=== PATIENT | female | born 1950 | race Caucasian/White ===

== ENCOUNTER 2017-12-29 19:47 | Inpatient (IN) | payer MEDICARE, OTHER ==
[~2017-12-29] VITALS: Ht 165.1 cm; Wt 83.0 kg
[2017-12-29 19:55] VITALS: BP 185/68
[2017-12-29] MEDS ORDERED: NEURONTIN600 MG PO (20:51)
[2017-12-29] MEDS ORDERED: TRAMADOL 50 MG50 MG PO (20:52)
[2017-12-29] MEDS ORDERED: LISINOPRIL10 MG PO (20:53)
[2017-12-29] MEDS ORDERED: XANAX 0.25 MG0.25 MG PO (20:54)
[2017-12-29] MEDS ORDERED: NIFEDIPINE ER60 M1 PO (20:54)
[2017-12-29] MEDS ORDERED: PRAVACHOL20 MG PO (20:55)
[2017-12-29] MEDS ORDERED: TERAZOSIN HCL5 MG PO (20:55)
[2017-12-29] MEDS ORDERED: CYCLOBENZAPRINE5 MG PO (20:55)
[2017-12-29] MEDS ORDERED: ADVAIR HFA 230M12 GM INH (20:56)
[2017-12-29] MEDS ORDERED: VALACYCLOVIR1000 MG PO (20:56)
[2017-12-29] MEDS ORDERED: VENTOLIN HFA 1818 GM INH (20:57)
[2017-12-29] MEDS ORDERED: RESTASIS1 EACH OPHTHALMIC (20:57)
[2017-12-29] MEDS ORDERED: REFRESH LACRI-3.5 GM OP (20:57)
[2017-12-29] MEDS ORDERED: HEALTHY HEART1 EAC1 PO (20:58)
[2017-12-29] MEDS ORDERED: FOLBIC RF TABL1 EACH PO (20:58)
[2017-12-29] MEDS ORDERED: VITAMIN C500 M2 PO (20:59)
[2017-12-29] MEDS ORDERED: FOLIC ACID1 MG PO (20:59)
[2017-12-29] MEDS ORDERED: CO Q-10100 MG PO (21:00)
[2017-12-29] MEDS ORDERED: MAGOX 400400 MG PO (21:00)
[2017-12-29] MEDS ORDERED: BIOTIN5000 MCG PO (21:00)
[2017-12-29] MEDS ORDERED: TUMS PO (21:01)
[2017-12-29] MEDS ORDERED: LIPOFLAVONOID1 EACH PO (21:01)
[2017-12-29 21:44] LABS: CALCIUM 8.7 mg/dL (8.5-10.1); CREATININE 1.3 mg/dL (0.6-1.3); POTASSIUM 5.1 mmol/L (3.5-5.1)
[2017-12-29 21:49] LABS: ALBUMIN 3.5 g/dL (3.4-5.0); TOTAL BILIRUBIN 0.4 mg/dL (<0.1-1.0); TOTAL PROTEIN 6.9 g/dL (6.4-8.2)
[2017-12-29 22:03] LABS: URINE BILIRUBIN NEGATIVE (Negative); URINE BLOOD NEGATIVE (Negative); URINE CLARITY CLEAR; URINE COLOR YELLOW; URINE GLUCOSE-RANDOM NEGATIVE (Negative); URINE KETONES NEGATIVE (Negative); URINE LEUKOCYTES-REFLEX NEGATIVE (Negative); URINE NITRITE-REFLEX NEGATIVE (Negative); URINE PROTEIN NEGATIVE (Negative); URINE UROBILINOGEN 0.2 E.U./dl (0.2-1.0)
[2017-12-30 00:04] LABS: HEMATOCRIT 34.8 % (37.0-47.0); HEMOGLOBIN 11.7 gm/dL (12.0-15.0); NUCLEATED RBCS 0 /100WBC
[2017-12-30 00:10] VITALS: BP 155/59
[2017-12-30 00:15] LABS: MCH 32.9 pg (26.0-34.0); MCHC 33.5 g/dL (28.0-37.0); MCV 98.2 fL (80.0-100.0); PLATELET COUNT* 220 thou/uL (150-400); RBC 3.55 mil/uL (4.20-5.00); RDW-CV 14.2 % (10.5-14.5); WBC 21.1 thou/uL (4.0-11.0)
[2017-12-30 00:54] LABS: ABSOLUTE LYMPHOCYTES 1.3 thou/uL (0.8-5.3); ABSOLUTE MONOCYTES 1.1 thou/uL (0.0-1.2); ABSOLUTE NEUTROPHILS 18.8 thou/uL (1.6-8.1); PLATELET ESTIMATE ADEQUATE
[2017-12-30] MEDS ORDERED: REFRESH PLUS1 EACH OPHTHALMIC (03:15)
[2017-12-30] MEDS ORDERED: VITAMIN D5000 UNIT PO (03:17)
[2017-12-30 04:00] VITALS: BP 154/76
--- NOTE | 2017-12-30 06:54 | NUR ---
PT ARRIVED TO ROOM 211 AT 0010. ASSESSMENT COMPLETED CHARTED. HAS SOME FORGETFULNESS AND BRINGS UP DIFFERENT THINGS ABOUT HERSELF AFTER THE ASSESSMENT. HAS C/O PAIN FROM NEUROPATHY. ALL MEDS WERE REVEIWED AND UPDATED. ABLE TO MAKE NEEDS KNOWN, CALL LIGHT WITHIN REACH. SEPSIS PROTOCOL INITATED IN ED. UP SEVERAL TIMES TO USE THE RESTROOM BUT BEDREST OTHERWISE. WILL CONTINUE WITH PLAN OF CARE AND CONTINUE TO MONITOR.
[2017-12-30 08:00] VITALS: BP 168/70
[2017-12-30 11:56] VITALS: BP 174/68
--- NOTE | 2017-12-30 15:21 | NUR ---
Pt is A&O. Resides at home with her in [place], Pt here on vacation, visiting her sister. Pt has a cane that she can use for mobility. No hx of HH or SNF. ID consulted. [place]. Following.
[2017-12-30 16:04] VITALS: BP 166/76
--- NOTE | 2017-12-30 18:28 | NUR ---
PATIENT RESTING IN BED. UP WITH STANDBY ASSIST. AOX4. LABS NOTED AND ID CONSULTED COMPLETED WITH ABX CHANGES ORDERED. PATINET ON ROOM AIR, SINUS TACH AND SINUS RHYTHM, NS@100 ML/HR. HOME MEDICATIONS RECONCILED AND TIMES ADJUSTED. HOURLY ROUNDING COMPLETED FOR PATIENT SAFETY AND PATIENT PRORESSING TOWARDS GOALS.
[2017-12-30 20:00] VITALS: BP 149/64
[2017-12-31] VITALS: BP 129/53
[2017-12-31 04:00] VITALS: BP 126/50
--- NOTE | 2017-12-31 04:34 | NUR ---
PT ALERT ORIENTED. CALLS OUT FOR ASSIST TO BR. PT IS A FALL RISK. TELMETRY SHOWS SR. PT GETTING PICC LINE TODAY. DIFFICULT STICK. TAKES SCHEDULED TRAMADOL AND GABAPENTIN TO PREVENT PAIN IN FEET. WILL CONTINUE TO MONITOR.
[2017-12-31 04:46] LABS: HEMATOCRIT 27.9 % (37.0-47.0); MCH 33.4 pg (26.0-34.0); MCHC 34.1 g/dL (28.0-37.0); MCV 97.9 fL (80.0-100.0); MPV 8.5 fl. (7.2-11.1); NUCLEATED RBCS 0 /100WBC; PLATELET COUNT* 182 thou/uL (150-400); RBC 2.85 mil/uL (4.20-5.00); RDW-CV 14.6 % (10.5-14.5); WBC 11.9 thou/uL (4.0-11.0)
[2017-12-31 05:00] LABS: ALBUMIN 2.6 g/dL (3.4-5.0); CALCIUM 8.6 mg/dL (8.5-10.1); POTASSIUM 4.2 mmol/L (3.5-5.1); TOTAL BILIRUBIN 0.2 mg/dL (<0.1-1.0); TOTAL PROTEIN 6.2 g/dL (6.4-8.2)
[2017-12-31 05:26] LABS: HEMOGLOBIN 9.5 gm/dL (12.0-15.0)
[2017-12-31 06:09] LABS: ABSOLUTE MONOCYTES 0.4 thou/uL (0.0-1.2); ABSOLUTE NEUTROPHILS 10.6 thou/uL (1.6-8.1)
[2017-12-31 06:10] LABS: ANISOCYTOSIS 1+; PLATELET ESTIMATE ADEQUATE
--- NOTE | 2017-12-31 07:36 | CON ---
[address] [address] CONSULTATION Name: CORTNEYROMELAUGUSTINE Room: [address] IN M.R.#: [id number] Admission: 12/29/17 Attend Phys: Facundo Llamas MD Discharge: Date of : 54 Report #: [id number] THIS REPORT FOR: //name// CC: [facility] physician/PCP Facundo Llamas DATE OF SERVICE: 12/30/2017 INFECTIOUS DISEASE CONSULTATION ATTENDING PHYSICIAN: Facundo Llamas MD. REASON FOR EVALUATION: Febrile illness. HISTORY OF PRESENT ILLNESS: Chart reviewed, patient examined. This is a 67-year-old with history of scleroderma as well as Sjogren's, complicated by some renal disease, who takes I believe azathioprine, who had developed what sounds like shaking chills, subsequently developed fevers as high as 103. Generally feeling poorly, did notice some wheezing. Not significant cough. Evaluation noted unremarkable. Chest x-ray for acute process. She does have some chronic changes to the scleroderma. Urinalysis was otherwise unremarkable as well as liver function test. Denies any particular exposure history. She was working in the garden some hours prior. Has not had any dietary indiscretion. No recent travel and no significant animal exposure. She is generally lucid at this point. ALLERGIES: SULFA. CURRENT MEDICATIONS: Include magnesium oxide, nifedipine, enoxaparin, alprazolam, ceftriaxone, cholecalciferol, budesonide, folic acid, cyclosporine eye drops, albuterol, lisinopril, azithromycin, gabapentin, ceftriaxone and recent methylprednisolone as well. PAST MEDICAL HISTORY: As described above, scleroderma, Sjogren's syndrome, peripheral neuropathy, hyperlipidemia. SOCIAL HISTORY: Nonsmoker, no ethanol. FAMILY HISTORY: Noncontributory. REVIEW OF SYSTEMS: As above. No new onset eruptions. No head and neck complaints. Did have some teeth pulled last September. PHYSICAL EXAMINATION: GENERAL: She is alert, cooperative, in mild distress, appears [place] [address] CONSULTATION Name: ALEXANDRA ANGELASA Room: [address]#: [id number] Admission: 12/29/17 Attend Phys: Facundo Llamas MD Discharge: Date of : 54 Report #: [id number] VITAL SIGNS: Temperature 98.6 with a T-max of 103.1 last evening, pulse 62, respirations 18, blood pressure 174/68. SKIN: Warm, dry, no rashes. HEENT: Unremarkable. NECK: Supple. LUNGS: Generally clear, occasional wheeze. HEART: Regular. I do not appreciate a murmur. ABDOMEN: Soft, some mild tenderness. There are no overt peritoneal signs. GENITOURINARY AND RECTAL: Deferred. LABORATORY DATA: Lactic acid initially was 2.6, repeat was 1.0. CBC: White count 21.1, H and H of 11.7 and platelet count of 220. Some neutrophilia. D-dimer of 0.96. Urinalysis unremarkable. Chest x-ray unremarkable. Electrolytes: Sodium 134, potassium 5.1, chloride 101, bicarbonate is 21, anion gap of 12, BUN and creatinine 21 and 1.3. LFTs were unremarkable. Albumin of 3.5, total protein 6.9. ASSESSMENT: Febrile illness. The patient has significant exposure history. She is somewhat immunosuppressed, although not markedly so. It seemingly is not evident of any focal pyogenic infection. It will be viral. She is around some children evidence of illness among grandchild. We will continue empiric antimicrobial therapy at this point. Adjust regimen. Blood cultures are pending. We will await those results. Continue to follow expectantly for evidence of a more localized site of pyogenic infection. <ELECTRONICALLY SIGNED> By: David Gill MD 12/31/17 0736 [id number] Gill MD /nt
[2017-12-31 08:30] VITALS: BP 142/54
[2017-12-31 11:59] VITALS: BP 146/59
--- NOTE | 2017-12-31 14:00 | NUR ---
CONSULTED TO PLACE PICC FOR PT NEEDING IV ACCESS. REVIEW OF CHART AND RECOMMEND MIDLINE. SPOKE WITH PRIMARY NURSE WHO AGREED. SPOKE WITH PT ABOUT RISK AND BENIFIT. VOICED UNDERSTANDING AND AGREED. 4FR SINGLE LUMAN POWER MIDLINE TO LEFT UPPER BASILIC. LINE TRIM AT 11CM AND ADVANCED 11CM TO 0CM EXTERNAL. LINE SECURED. GOOD BRISK BLOOD RETURN NOTED AND FLUSHED WITH EASE. LINE RELEASED FOR USE. PRIMARY NURSING AWARE.
[2017-12-31 16:22] VITALS: BP 140/60
--- NOTE | 2017-12-31 18:58 | NUR ---
ASSUMED PT CARE AT 0700 PT IS ALERT AND ORIENTED X 4 PT C/O LITTLE PAIN PT HAS PAIN MEDS SCHEDULED, PT DENIES SOA ON 2L/NC, RT TOOK PT OFF OXYGEN PT IS SAT ABOVE 90 ON RA, PT IS SR-ST ON THE MONITOR, PT IS UP WITH SBA STEADY GAIT, PT WENT FOR CENTRAL LINE PLACEMENT PT DID NOT QUALIFY FOR PICC SINCE ACCESS IS NEEDED CLARIFIED WITH NKECHI THAT PT IS NOT GOING HOME ON IV ANTIBIOTICS PHYSICIAN STATES SHE WILL NOT DISCAHRGE WITH IV ANTIBIOTICS, GAVE ONE DOSES OF LASIX AND SOUL MEDROL, PAGED PHYSICIAN ABOUT PT HOME MEDS OBTAINED ORDER TO RESTART HOME MEDS, PT NOTIFIED THIS NURSE THAT HOME MEDICATIONS SUPPLEMENT IS TID NOTIFIED PHYSJACQUIAN OBTAINED ORDER FOR CORRECT TIMING, WILL CONTINUE TO MONITOR
[2017-12-31 20:00] VITALS: BP 162/72
--- NOTE | 2017-12-31 22:28 | NUR ---
ASSUMED PT CARE AT 19:15 . REPORT RECEIVED FROM NURSE. PT IS ALERT, AWAKE, ORIENTED X4. VITAL SIGNS ARE WITHIN NORMAL LIMIT EXCEPT FOR BP 162/ 72. NIFEDIPINE TO BE ADMINISTERED SCEDULED WILL MONITOR BP AGAIN. ASSESSMENT PERFORMED. STACHY ON THE MONITOR. O2 SAT 97% ON RA. PT SISTER IN IN THE ROOM. IV PICC LINE IN UPPER L IS PATENT. COMPLAINS OF PAIN LEVEL OF 5 IN LOWER EXTRMITIES. SCHEDULED PAIN MED WERE ADMINSTERED. PT WANTS ANOTER DOSE OF HER EAR RINGING HOME MEDICATION. GUT SNATCHER WAS CONTACTED. PT WAS ABLE TO TAKE HER NIGHT DOSE. 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 WILL CONTINUE TO MARKELL
[2018-01-01] VITALS: BP 149/60
[2018-01-01 04:00] VITALS: BP 147/72
[2018-01-01 05:03] LABS: ABSOLUTE LYMPHOCYTES 0.4 thou/uL (0.8-5.3); ABSOLUTE MONOCYTES 0.1 thou/uL (0.0-1.2); ABSOLUTE NEUTROPHILS 7.5 thou/uL (1.6-8.1); BASOPHILS 0.1 %; HEMATOCRIT 31.3 % (37.0-47.0); HEMOGLOBIN 10.6 gm/dL (12.0-15.0); LYMPHOCYTES 4.5 %; MCH 33.3 pg (26.0-34.0); MCV 97.9 fL (80.0-100.0); MONOCYTES 0.8 %; MPV 8.4 fl. (7.2-11.1); NUCLEATED RBCS 0 /100WBC; PLATELET COUNT* 229 thou/uL (150-400); POLYS 94.6 %; RBC 3.19 mil/uL (4.20-5.00); WBC 7.9 thou/uL (4.0-11.0)
[2018-01-01 05:20] LABS: PREALBUMIN 21.6 mg/dL (18.0-35.7)
[2018-01-01 05:21] LABS: ALBUMIN 2.9 g/dL (3.4-5.0); CALCIUM 9.4 mg/dL (8.5-10.1); CREATININE 1.1 mg/dL (0.6-1.3); POTASSIUM 4.6 mmol/L (3.5-5.1); TOTAL BILIRUBIN 0.2 mg/dL (<0.1-1.0)
--- NOTE | 2018-01-01 05:44 | NUR ---
PT SLEPT FOR WELL LAST NIGHT, STILL SLEEPING AT THIS TIME. SHE DID RECEIVE HER REQUESTED DOSE OF EAR RINGING MEDICATION. LAB WERE DRAWN. MAY BE DISCARGED TODAY TO HOME WITH SISTER.
[2018-01-01 07:30] VITALS: BP 126/68
[2018-01-01 12:00] VITALS: BP 142/67
[2018-01-01 16:00] VITALS: BP 139/56
[2018-01-01 20:00] VITALS: BP 154/68
--- NOTE | 2018-01-01 20:49 | NUR ---
RECEIVED REPORT AND ASSUMED CARE AT 0730. VSS. CARDIAC MONITORING IN PLACE. PT REPORTS PAIN, CHRONIC AT A 10/09. PT DECLINES PRN PAIN MEDICATION. ASSESSMENT COMPLETED CHARTED. HOURLY ROUNDING COMPLETED, ALL NEEDS MET. MEDICATIONS ADMIN PER ORDERS. PT SCHEDULED FOR CT 01/02/18. PT UP AD LM IN ROOM, ON RA. BED IN LOWEST POSITION, CALL LIGHT WITHIN REACH. DISCUSSED PLAN OF CARE WITH PT. VERBALIZED UNDERSTANDING. NURSING WILL CONTINUE TO MONITOR.
[2018-01-02] VITALS: BP 147/61
--- NOTE | 2018-01-02 03:36 | NUR ---
ASSUMED CARE OF PT AT 1900. PT IS ALERT AND ORIENTED. VSS. PERRLA. NO COMPLAINTS OF PAIN. PT IS IN SINUS RYTHM ON THE TELEMETRY. PT IS RESTING COMFORTABLY IN BED. RESPIRATIONS ARE EVEN AND NONLABORED. WILL CONTINUE TO MONITOR PT.
[2018-01-02 04:00] VITALS: BP 126/57
--- NOTE | 2018-01-02 07:25 | NUR ---
CHANGE OF SHIFT BEDSDIE REPORT GIVEN PATIENT SEEN AT BEDSIDE, ASLEEP ASSUMED PATIENT CARE
[2018-01-02 08:00] VITALS: BP 123/63
[2018-01-02 12:00] VITALS: BP 142/74
[2018-01-02 16:00] VITALS: BP 145/60
[2018-01-02 20:25] VITALS: BP 151/76
[2018-01-03 00:37] VITALS: BP 112/67
--- NOTE | 2018-01-03 02:54 | NUR ---
ASSUMED CARE OF PT AT 1900. PT IS ALERT AND ORIENTED. VSS. PERRLA. NO COMPLAINTS OF PAIN. STEADY GAIT. PT IS IN SINUS RYTHM ON THE TELEMETRY. PT IS RESTING COMFORTABLY IN BED. RESPIRATIONS ARE EVEN AND NONLABORED. WILL CONTINUE TO MONITOR PT.
[2018-01-03 04:18] VITALS: BP 115/70
[2018-01-03 08:45] VITALS: BP 136/67
[2018-01-03] MEDS ORDERED: LEVAQUIN 750 M750 MG PO (11:09)
[2018-01-03 11:11] VITALS: BP 136/67
--- NOTE | 2018-01-03 12:44 | NUR ---
ASSUMED PT CARE AT 0730, FULL ASSESMENT DONE CHARTED. PT A/O X4, SOMEWHAT ANXIOUS. PT STATES SHE IS FEELING BETTER, WANTS TO DISCHARGE TODAY. SHE REPORTS BEING FROM [place] AFTER COMING HER TO VISIT FAMILY. VSS, AFEBRILE, SR ON THE MONITOR. PT DENIES PAIN. UP AD LM. SPOKE TO , RECIEVED DISCHARGE ORDERS. PT IS TO FOLLOW UP WITH DR ERNANDEZ NEXT WEEK, EDUCATED ON NEW MEDICATION, PT SENT WITH HOME MEDS. LEFT UNIT AT APPROX 1200 WITH SISTER.
== END 2018-01-03 12:20 | disposition home or self-care (01) | DRG 871 ==
LOC: M.ERS 19:47 → M.2W 22:37 → M.TBA-ER 22:37 → M.2W 23:24
PROVIDERS: Emergency Medicine Emergency Medical Services; Internal Medicine; ADMIT Internal Medicine
PROC: 05HA33Z Insertion of Infusion Device into Left Brachial Vein, Percutaneous Approach (ICD-10-PCS; principal; 2017-12-31)
DX: A41.9 Sepsis, unspecified organism (principal); J15.6 Pneumonia due to other Gram-negative bacteria; E87.2 Acidosis; B34.9 Viral infection, unspecified; I12.9 Hypertensive chronic kidney disease with stage 1 through stage 4 chronic kidney disease, or unspecified chronic kidney disease; M34.9 Systemic sclerosis, unspecified; N18.3 Chronic kidney disease, stage 3 (moderate); M35.00 Sjogren syndrome, unspecified; G62.9 Polyneuropathy, unspecified; E78.5 Hyperlipidemia, unspecified; M19.90 Unspecified osteoarthritis, unspecified site; D64.9 Anemia, unspecified; G89.29 Other chronic pain; Z79.899 Other long term (current) drug therapy; Z88.2 Allergy status to sulfonamides

== ENCOUNTER → 2018-01-10 | Outpatient (CLI) | payer MEDICARE, OTHER ==
[~2018-01-10] MED LIST: ADVAIR HFA 230M12 GM INH; BIOTIN5000 MCG PO; CO Q-10100 MG PO; CYCLOBENZAPRINE5 MG PO; FOLBIC RF TABL1 EACH PO; FOLIC ACID1 MG PO; HEALTHY HEART1 EAC1 PO; LEVAQUIN 750 M750 MG PO; LIPOFLAVONOID1 EACH PO; LISINOPRIL10 MG PO; MAGOX 400400 MG PO; NEURONTIN600 MG PO; NIFEDIPINE ER60 M1 PO; PRAVACHOL20 MG PO; REFRESH LACRI-3.5 GM OP; REFRESH PLUS1 EACH OPHTHALMIC; RESTASIS1 EACH OPHTHALMIC; TERAZOSIN HCL5 MG PO; TRAMADOL 50 MG50 MG PO; TUMS PO; VALACYCLOVIR1000 MG PO; VENTOLIN HFA 1818 GM INH; VITAMIN C500 M2 PO; VITAMIN D5000 UNIT PO; XANAX 0.25 MG0.25 MG PO
== END ==
LOC: M.RAD 15:30
DX: J18.9 Pneumonia, unspecified organism (principal)